=== PATIENT | male | born 1980 | race Caucasian/White ===

== ENCOUNTER 2022-06-04 19:05 | Emergency (ER) | payer OTHER ==
--- NOTE | 2022-06-04 19:29 | ER ---
Nurse's Notes [facility] Name: Reji Brumfield Age: 41 yrs Sex: Male : 1980 Arrival Date: 06/04/2022 Time: 19:07 Bed 14 Private MD: Diagnosis: Low back pain Presentation: 06/04 19:18 Chief complaint: Patient states: "I broke my back when I was 21 so I have always had vc1 back problems. The last MRI I had showed bulging disk. The other day I threw up and since then my back has really been bothering me. Today I am to the point where I can't move.". Coronavirus screen: Vaccine status: Patient reports receiving the 2nd dose of the covid vaccine. Moderna Client denies travel out of the [place] in the last 14 days. At this time, the client does not indicate any symptoms associated with coronavirus-19. Ebola Screen: No symptoms or risks identified at this time. Initial Sepsis Screen: Does the patient meet any 2 criteria? No. Patient's initial sepsis screen is negative. Does the patient have a suspected source of infection? No. Patient's initial sepsis screen is negative. Risk Assessment: Do you want to hurt yourself or someone else? Patient reports no desire to harm self or others. Onset of symptoms is unknown. 19:18 Method Of Arrival: Wheelchair vc1 19:18 Acuity: SARINA 3 vc1 Triage Assessment: 19:24 General: Appears in no apparent distress. uncomfortable, Behavior is cooperative, vc1 appropriate for age. Pain: Complains of pain in back Pain does not radiate. Pain currently is 10 out of 10 on a pain scale. EENT: No deficits noted. No signs and/or symptoms were reported regarding the EENT system. Neuro: Level of Consciousness is awake, alert, obeys commands, Oriented to person, place, time, situation, Appropriate for age. Cardiovascular: No deficits noted. Respiratory: Airway is patent Respiratory effort is even, unlabored, Respiratory pattern is regular, symmetrical. GI: No deficits noted. : No deficits noted. No signs and/or symptoms were reported regarding the genitourinary system. Derm: No deficits noted. No signs and/or symptoms reported regarding the dermatologic system. Musculoskeletal: used arms to transfer from wheel chair to bed, did not stand straight up. Historical: - Allergies: 19:22 PENICILLINS; vc1 - Home Meds: 19:22 Amphetamine salts [Active]; vc1 - PMHx: 19:22 ADHD; Bulging disk; vc1 - Immunization history:: Client reports receiving the 2nd dose of the Covid vaccine. - Social history:: Smoking status: Patient denies any tobacco usage or history of. Patient uses. - Family history:: not pertinent. Screenin:23 [facility] ED Fall Risk Assessment (Adult) History of falling in the last 3 months, vc1 including since admission No falls in past 3 months (0 pts) Confusion or Disorientation No (0 pts) Intoxicated or Sedated No (0 pts) Impaired Gait Yes (1 pt) Mobility Assist Device Used No (0 pt) Altered Elimination No (0 pt) Score/Fall Risk Level 0 - 2 = Low Risk Oriented to surroundings, Maintained a safe environment, Educated pt \\T\\ family on fall prevention, incl call for assistance when getting out of bed. Abuse screen: Denies threats or abuse. Nutritional screening: No deficits noted. Tuberculosis screening: No symptoms or risk factors identified. Assessment: 19:44 Reassessment: Pt d/c pending shot time. see triage note. jb4 20:18 Reassessment: Patient appears in no apparent distress at this time. Patient and/or jb4 family updated on plan of care and expected duration. Pain level reassessed. Patient is alert, oriented x 3, equal unlabored respirations, skin warm/dry/pink. Patient states feeling better. Vital Signs: 19:18 BP 128 / 80; Pulse 86; Resp 14; Temp 98.5(O); Pulse Ox 100% ; Weight 72.57 kg; Height 5 vc1 ft. 11 in. (180.34 cm); Pain 10/10; 20:18 BP 122 / 84; Pulse 70; Resp 16; Pulse Ox 97% on R/A; jb4 19:18 Body Mass Index 22.32 (72.57 kg, 180.34 cm) vc1 ED Course: 19:07 Patient arrived in ED. as 19:18 Ray Duncan MD is Attending Physician. rt 19:22 Triage completed. vc1 19:22 Дмитрий Zacarias RN is Primary Nurse. jb4 19:26 Patient has correct armband on for positive identification. Bed in low position. Pulse vc1 ox on. NIBP on. 19:26 Arm band placed on left wrist. vc1 20:19 No provider procedures requiring assistance completed. Patient did not have IV access jb4 during this emergency room visit. Administered Medications: 19:38 Drug: Flexeril (cyclobenzaprine) 10 mg Route: PO; jb4 20:18 Follow up: Response: No adverse reaction; Marked relief of symptoms; Pain is decreased jb4 19:44 Drug: Ketorolac 30 mg Route: IM; Site: right gluteus; jb4 20:19 Follow up: Response: No adverse reaction; Marked relief of symptoms; Pain is decreased jb4 19:44 Drug: Decadron (dexamethasone) 10 mg Route: IM; Site: right gluteus; jb4 20:19 Follow up: Response: No adverse reaction; Marked relief of symptoms; Pain is decreased jb4 Medication: 19:26 VIS not applicable for this client. vc1 Outcome: 19:28 Discharge ordered by MD. rt 20:19 Discharged to home via wheelchair, with family. jb4 20:19 Condition: stable 20:19 Discharge instructions given to patient, Instructed on discharge instructions, follow up and referral plans. medication usage, Demonstrated understanding of instructions, follow-up care, medications, Prescriptions given X 1. 20:21 Patient left the ED. jb4 Signatures: Ana Laura Gallagher James RN RN jb4 Mora Lee RN RN vc1 Ray Duncan MD MD rt Corrections: (The following items were deleted from the chart) 20:18 19:44 Reassessment: Pt d/c pending shot time. jb4 jb4
--- NOTE | 2022-06-04 19:29 | EDPHYS ---
Physician Documentation [facility] Name: Reji Brumfield Age: 41 yrs Sex: Male : 1980 Arrival Date: 06/04/2022 Time: 19:07 Bed 14 Private MD: ED Physician Ray Duncan HPI: 06/04 19:29 This 41 yrs old Male presents to ER via Wheelchair with complaints of Back Pain. rt 19:29 The patient presents with pain that is chronic, with no known mechanism of injury. The rt symptoms are located in the low back. 19:32 The pain does not radiate. Associated signs and symptoms: The patient has no apparent rt associated signs or symptoms. Patient with chronic back pain stemming from an injury 20 years ago presents to the ED with about 1 week of intermittent worsening of his back pain. Patient states that the pain worsened today. Does not adequately relieved with ibuprofen. Denies bowel, bladder continence, numbness, weakness. Denies other acute complaints at this time, symptoms are mild in severity, aching nature, nonradiating, no other aggravating alleviating factors.. Historical: - Allergies: 19:22 PENICILLINS; vc1 - Home Meds: 19:22 Amphetamine salts [Active]; vc1 - PMHx: 19:22 ADHD; Bulging disk; vc1 - Immunization history:: Client reports receiving the 2nd dose of the Covid vaccine. - Social history:: Smoking status: Patient denies any tobacco usage or history of. Patient uses. - Family history:: not pertinent. ROS: 19:32 Constitutional: Negative for fever, chills, and weight loss, Eyes: Negative for injury, rt pain, redness, and discharge, Cardiovascular: Negative for chest pain, palpitations, and edema, Respiratory: Negative for shortness of breath, cough, wheezing, and pleuritic chest pain, Abdomen/GI: Negative for abdominal pain, nausea, vomiting, diarrhea, and constipation, Skin: Negative for injury, rash, and discoloration, Neuro: Negative for headache, weakness, numbness, tingling, and seizure, Psych: Negative for depression, anxiety, suicide ideation, homicidal ideation, and hallucinations. 19:32 Back: Positive for pain at rest, pain with movement. Exam: 19:32 Constitutional: This is a well developed, well nourished patient who is awake, alert, rt and in no acute distress. Head/Face: Normocephalic, atraumatic. Chest/axilla: Normal chest wall appearance and motion. Nontender with no deformity. No lesions are appreciated. Cardiovascular: Regular rate and rhythm with a normal S1 and S2. No gallops, murmurs, or rubs. Normal PMI, no JVD. No pulse deficits. Respiratory: Lungs have equal breath sounds bilaterally, clear to auscultation and percussion. No rales, rhonchi or wheezes noted. No increased work of breathing, no retractions or nasal flaring. MS/ Extremity: Pulses equal, no cyanosis. Neurovascular intact. Full, normal range of motion. Neuro: Awake and alert, GCS 15, oriented to person, place, time, and situation. Cranial nerves II-XII grossly intact. Motor strength 5/5 in all extremities. Sensory grossly intact. Cerebellar exam normal. Normal gait. Psych: Awake, alert, with orientation to person, place and time. Behavior, mood, and affect are within normal limits. Vital Signs: 19:18 BP 128 / 80; Pulse 86; Resp 14; Temp 98.5(O); Pulse Ox 100% ; Weight 72.57 kg; Height 5 vc1 ft. 11 in. (180.34 cm); Pain 10/10; 20:18 BP 122 / 84; Pulse 70; Resp 16; Pulse Ox 97% on R/A; jb4 19:18 Body Mass Index 22.32 (72.57 kg, 180.34 cm) vc1 MDM: 19:18 Patient medically screened. rt 19:32 Differential diagnosis: Abdominal Aortic Aneurysm Fracture Osteoarthritis. Data rt reviewed: vital signs, nurses notes. ED course: Patient presents to the ED with an acute worsening of his chronic low back pain. He has no bowel, bladder incontinence, is afebrile. Do not suspect spinal dural abscess, aortic pathology, cauda equina syndrome. We will treat patient symptomatically. Instructed to obtain care with a primary care physician and to follow-up for further management.. Administered Medications: 19:38 Drug: Flexeril (cyclobenzaprine) 10 mg Route: PO; jb4 20:18 Follow up: Response: No adverse reaction; Marked relief of symptoms; Pain is decreased jb4 19:44 Drug: Ketorolac 30 mg Route: IM; Site: right gluteus; jb4 20:19 Follow up: Response: No adverse reaction; Marked relief of symptoms; Pain is decreased jb4 19:44 Drug: Decadron (dexamethasone) 10 mg Route: IM; Site: right gluteus; jb4 20:19 Follow up: Response: No adverse reaction; Marked relief of symptoms; Pain is decreased jb4 Disposition Summary: 06/04/22 19:28 Discharge Ordered Location: Home rt Problem: chronic rt Symptoms: are unchanged rt Condition: Stable rt Diagnosis - Low back pain rt Followup: rt - With: Private Physician - When: 2 - 3 days - Reason: Discharge Instructions: - Discharge Summary Sheet rt - Chronic Back Pain rt Forms: - Medication Reconciliation Form rt - Thank You Letter rt - Antibiotic Education rt - Prescription Opioid Use rt Prescriptions: - Cyclobenzaprine 10 mg Oral Tablet - take 1 tablet by ORAL route every 8 hours As needed; 30 tablet; Refills: 0, rt Product Selection Permitted Signatures: Дмитрий Zacarias RN RN jb4 Mora Lee RN RN vc1 Ray Duncan MD MD rt
[2022-06-04] MEDS ORDERED: CYCLOBENZAPRINE 10 MG TAB ONE (19:33)
[2022-06-04] MEDS ORDERED: KETOROLAC 30 MG/ML INJ ONE (19:34)
[2022-06-04] MEDS ORDERED: dexAMETHasone 10 MG/ML VIAL ONE (19:34)
[2022-06-04 20:26] VITALS: TEMP 98.5
[2022-06-04 20:27] VITALS: BP 122/84; O2SAT 97
== END 2022-06-04 20:21 | disposition home or self-care (01) ==
LOC: ER 19:05
DX: M54.50 Low back pain, unspecified (principal)
CPT/HCPCS: 96372; 99283; J1100